=== PATIENT | female | born 1985 | race American Indian/Alaskan Native ===

== ENCOUNTER 2016-08-24 18:52 | Emergency (ER) | payer MEDICAID ==
[2016-08-24 19:42] VITALS: BP 140/83
--- NOTE | 2016-08-24 21:34 | Emergency Department Report ---
ED Rash HPI - HPI Chief Complaint: Skin Rash Stated Complaint: POSS HEAD BUGS Time Seen by Provider: 08/24/16 21:24 Location: Head, Neck Suspected Cause: Insect Rash Symptoms: Yes Itching, No Facial Swelling, No Tongue/Oral Swelling, No Breathing Difficulties, No Choking Sensation, No Wheezing/Dyspnea, No Peeling, No Blistering, No Fever, No Lightheaded, No Malaise, No Myalgias Severity: mild Other History: 30-year-old female past medical history none presents with complaint of itchy scalp and insects in her hair. Patient states that herself and her child they have been exhibiting symptoms for approximately one week. Recently stayed in a hotel. Patient states that she has noticed some small black insects falling out of her hair while showering. Denies any fever or chills denies any involvement of upper lower extremities primarily complaining of itchy scalp ED Review of Systems ROS: Stated complaint: POSS HEAD BUGS Other details as noted in HPI Constitutional: denies: chills, fever Eyes: denies: eye pain, eye discharge, vision change ENT: denies: ear pain, throat pain Respiratory: denies: cough, shortness of breath, wheezing Cardiovascular: denies: chest pain, palpitations Endocrine: no symptoms reported Gastrointestinal: denies: abdominal pain, nausea, diarrhea Genitourinary: denies: urgency, dysuria, discharge Musculoskeletal: denies: back pain, joint swelling, arthralgia Skin: as per HPI. denies: rash, lesions Neurological: denies: headache, weakness, paresthesias Psychiatric: denies: anxiety, depression Hematological/Lymphatic: denies: easy bleeding, easy bruising ED Past Medical Hx - Past Medical History Previous Medical History?: No - Surgical History Past Surgical History?: Yes Additional Surgical History: knee - Social History Smoking Status: Never Smoker Substance Use Type: None - Medications Home Medications: Home Medications Medication Instructions Recorded Confirmed Last Taken Type Permethrin 5% [Acticin 5% CREAM] 1 applicatio TP ONCE #1 tube 08/24/16 Unknown Rx Rash Exam - Exam General: Vital signs noted. No distress. Alert and acting appropriately. HEENT: No Periorbital Edema, No Conjuctival Injection, No Chemosis, No Perioral Edema, No Tongue Edema, No Uvular Edema, No Compromised Airway, No Drooling Lungs: Yes Good Air Exchange (Normal Breath Sounds), No Wheezes, No Ronchi, No Stridor, No Cough, No Labored Respirations, No Retractions, No Use of Accessory Muscles, No Other Abnormal Lung Sounds Heart: Yes Regular, No Murmur Skin: Yes Excoriations (small linear excoriations at base of neck and near hairline), No Urticarial Rash, No Maculopapular Rash, No Morbilliform rash, No Bulla(e), No Weeping, No Tenderness, No Erythema, No Encrustations, No Other Other: Positive: Abdomen Normal, Neurologic Normal, Musculoskeletal Normal ED Course Vital Signs 08/24/16 19:40 Temperature 98.2 F Pulse Rate 109 H Respiratory 18 Rate Blood Pressure 140/83 O2 Sat by Pulse 100 Oximetry ED Medical Decision Making - Medical Decision Making A/P: Possible scabies/flea infestation 1-treatment with permethrin cream 2-I advised patient to repeat treatment within 1 week if no resolution with first round of treatment 3-follow up with primary care doctor 4- Benadryl when necessary [id number] for itching Critical care attestation.: If time is entered above; I have spent that time in minutes in the direct care of this critically ill patient, excluding procedure time. ED Disposition Clinical Impression: Scabies Disposition: -01 TO HOME OR SELFCARE Is pt being admited?: No Does the pt Need Aspirin: No Condition: Stable Instructions: Scabies (ED) Prescriptions: Permethrin 5% [Acticin 5% CREAM] 1 applicatio TP ONCE #1 tube Referrals: [facility] [Provider Group] - 3-5 Days Time of Disposition: 21:33
== END 2016-08-24 21:35 | disposition home or self-care (01) ==
LOC: ED 18:52
DX: B86 Scabies (principal)
CPT/HCPCS: 99281

== ENCOUNTER 2019-04-22 16:49 | Emergency (ER) | payer MEDICAID ==
[2019-04-22 18:38] VITALS: BP 115/64
--- NOTE | 2019-04-22 18:44 | Emergency Department Report ---
Blank Doc - Documentation Documentation: 33-year-old female that presents with flank pain. This initial assessment/diagnostic orders/clinical plan/treatment(s) is/are subject to change based on patient's health status, clinical progression and re- assessment by fellow clinical providers in the ED. Further treatment and workup at subsequent clinical providers discretion. Patient/guardians urged not to elope from the ED as their condition may be serious if not clinically assessed and managed. Initial orders include: 1- Patient sent to [facility] for further evaluation and treatment 2- UA
[2019-04-22 20:21] LABS: Bilirubin,Urine NEG (Negative); Blood,Urine NEG (Negative); Color,Urine Yellow (Yellow); Mucus,Urine FEW /HPF; Protein,Urine <15 mg/dL mg/dL (Negative); Urobilinogen,Urine < 2.0 mg/dL (<2.0)
[2019-04-22 20:33] LABS: HCG Qualitative,Urine Negative (Negative)
[2019-04-22] MEDS ORDERED: ONDANSETRON 4 MG ODT TAB PO ONE (23:00)
[2019-04-22] MEDS ORDERED: KETOROLAC 30 MG/1 ML INJ IM ONE (23:00)
[2019-04-22] MEDS ORDERED: oxyCODONE /ACETAMINOPHEN 5-325MG TAB PO ONE (23:00)
[2019-04-22] MEDS ORDERED: dexAMETHasone 20 MG/5 ML VIAL IM ONE (23:00)
--- NOTE | 2019-04-22 23:45 | Emergency Department Report ---
ED Back Pain/Injury HPI - General Chief Complaint: Abdominal Pain Stated Complaint: RT SIDE LOWER BACK PAIN Time Seen by Provider: 04/22/19 18:44 Source: patient Limitations: No Limitations - History of Present Illness Initial Comments: Patient is a 33-year-old -[place] female with no past medical history presents to the ED with complaint of acute onset persistent nontraumatic low back pain for the last 2 days after heavy lifting at work. Patient states that the pain has been persistent and that in the last 12 hours the pain has worsened. Patient denies fall, traumatic injury, dysuria, urinary frequency and urgency, vaginal bleeding, dizziness, urinary or bowel incontinence, saddle paresthesia, fever and chills and hematuria. MD Complaint: back pain, other (heavy lifting at work) -: Sudden, days(s) (2) Similar Symptoms Previously: Yes Place: home Radiation: none Severity: moderate Severity scale (0 -10): 6 Quality: sharp, aching Consistency: constant Improves With: none Worsens With: none Context: while lifting, turning/twisting Associated Symptoms: denies other symptoms. denies: confusion, weakness, numbness, difficulty walking, cough, difficulty urinating, incontinence, constipation, headaches, abdominal pain, malaise, nausea/vomiting, rash, seizure, syncope - Related Data Previous Rx's Medication Instructions Recorded Last Taken Type Permethrin 5% [Acticin 5% CREAM] 1 applicatio TP ONCE #1 tube 08/24/16 Unknown Rx Ibuprofen [Motrin] 800 mg PO Q8HR PRN #24 tablet 04/22/19 Unknown Rx predniSONE [Deltasone] 40 mg PO QDAY #10 tab 04/22/19 Unknown Rx tiZANidine [Zanaflex 4mg TAB] 4 mg PO Q8H PRN #21 tablet 04/22/19 Unknown Rx traMADoL [Ultram] 50 mg PO Q6HR PRN #12 tablet 04/22/19 Unknown Rx Allergies Allergy/AdvReac Type Severity Reaction Status Date / Time No Known Allergies Allergy Unverified 08/24/16 19:40 ED Review of Systems ROS: Stated complaint: RT SIDE LOWER BACK PAIN Other details as noted in HPI Constitutional: denies: chills, fever Eyes: denies: eye pain, eye discharge, vision change ENT: denies: ear pain, throat pain Respiratory: denies: cough, shortness of breath, wheezing Cardiovascular: denies: chest pain, palpitations Endocrine: no symptoms reported Gastrointestinal: denies: abdominal pain, nausea, diarrhea Genitourinary: denies: urgency, dysuria, discharge Musculoskeletal: back pain (lower), arthralgia. denies: joint swelling Skin: denies: rash, lesions Neurological: denies: headache, weakness, paresthesias Psychiatric: denies: anxiety, depression Hematological/Lymphatic: denies: easy bleeding, easy bruising ED Past Medical Hx - Past Medical History Previous Medical History?: No - Surgical History Past Surgical History?: Yes Additional Surgical History: knee - Social History Smoking Status: Current Every Day Smoker Substance Use Type: Alcohol - Medications Home Medications: Home Medications Medication Instructions Recorded Confirmed Last Taken Type Permethrin 5% [Acticin 5% CREAM] 1 applicatio TP ONCE #1 tube 08/24/16 Unknown Rx Ibuprofen [Motrin] 800 mg PO Q8HR PRN #24 tablet 04/22/19 Unknown Rx predniSONE [Deltasone] 40 mg PO QDAY #10 tab 04/22/19 Unknown Rx tiZANidine [Zanaflex 4mg TAB] 4 mg PO Q8H PRN #21 tablet 04/22/19 Unknown Rx traMADoL [Ultram] 50 mg PO Q6HR PRN #12 tablet 04/22/19 Unknown Rx ED Physical Exam - General Limitations: No Limitations General appearance: alert, in no apparent distress - Head Head exam: Present: atraumatic, normocephalic, normal inspection - Eye Eye exam: Present: normal appearance, PERRL, EOMI Pupils: Present: normal accommodation - ENT ENT exam: Present: normal exam, normal orophraynx, mucous membranes moist, TM's normal bilaterally, normal external ear exam - Neck Neck exam: Present: normal inspection, full ROM - Respiratory Respiratory exam: Present: normal lung sounds bilaterally. Absent: respiratory distress, wheezes, rales, rhonchi, chest wall tenderness, accessory muscle use, decreased breath sounds - Cardiovascular Cardiovascular Exam: Present: regular rate, normal rhythm, normal heart sounds. Absent: systolic murmur, diastolic murmur, rubs, gallop - GI/Abdominal GI/Abdominal exam: Present: soft, normal bowel sounds. Absent: tenderness, guarding - Extremities Exam Extremities exam: Present: normal inspection, full ROM. Absent: normal capillary refill, pedal edema, joint swelling - Back Exam Back exam: Present: normal inspection, full ROM, tenderness (Palpable lumbosacral paraspinal musculoskeletal tenderness), muscle spasm, paraspinal tenderness - Neurological Exam Neurological exam: Present: alert, oriented X3, CN II-XII intact, normal gait, reflexes normal - Psychiatric Psychiatric exam: Present: normal affect, normal mood - Skin Skin exam: Present: warm, dry, intact, normal color. Absent: rash ED Course Vital Signs 04/22/19 18:31 Temperature 98.5 F Pulse Rate 67 Respiratory 18 Rate Blood Pressure 115/64 O2 Sat by Pulse 98 Oximetry ED Medical Decision Making - Medical Decision Making This is a 33-year-old female who presented to the ED with acute onset nontraumatic low back pain after heavy lifting at work 2 days ago. 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 In the ED, patient is alert and oriented x3 and is not in any distress but appears to be in pain. Patient was treated for pain in the ED and on reevaluation, patient's pain is well controlled with medications. Urinalysis is unremarkable. Patient was discharged home on medication advised to follow-up with her primary care physician in 7 to 10 days for reevaluation or return to the ED immediately if symptoms get worse. - Differential Diagnosis muscle spasm of back; Muscle strain of lower back; UTI Critical care attestation.: If time is entered above; I have spent that time in minutes in the direct care of this critically ill patient, excluding procedure time. ED Disposition Clinical Impression: Spasm of muscle of lower back, Strain of muscle, fascia and tendon of lower back, initial encounter Acute low back pain without sciatica Qualifiers: Back pain laterality: unspecified Qualified Code(s): M54.5 - Low back pain Disposition: - TO HOME OR SELFCARE Is pt being admited?: No Does the pt Need Aspirin: No Condition: Stable Instructions: Abdominal Pain (ED) Additional Instructions: Your symptoms are likely musculoskeletal strain or muscle spasm of your low back. Take medication with food, drink plenty of fluids and follow-up with your primary care physician in 7 to 10 days for reevaluation. Return to the ED immediately if symptoms get worse. Prescriptions: predniSONE [Deltasone] 40 mg PO QDAY #10 tab Ibuprofen [Motrin] 800 mg PO Q8HR PRN #24 tablet PRN Reason: Pain , Severe (7-10) traMADoL [Ultram] 50 mg PO Q6HR PRN #12 tablet PRN Reason: Pain tiZANidine [Zanaflex 4mg TAB] 4 mg PO Q8H PRN #21 tablet PRN Reason: Muscle Spasm Referrals: [facility] [Outside] - 7-10 days Forms: Work/School Release Form(ED) Time of Disposition: 23:46 Print Language: LUXEMBOURGER
== END 2019-04-23 00:10 | disposition home or self-care (01) ==
LOC: ED 16:49
DX: S39.012A Strain of muscle, fascia and tendon of lower back, initial encounter (principal); M62.830 Muscle spasm of back; F17.200 Nicotine dependence, unspecified, uncomplicated; Z79.1 Long term (current) use of non-steroidal anti-inflammatories (NSAID); Z79.899 Other long term (current) drug therapy; X50.9XXA Other and unspecified overexertion or strenuous movements or postures, initial encounter; Y93.89 Activity, other specified; Y92.89 Other specified places as the place of occurrence of the external cause; Y99.8 Other external cause status
CPT/HCPCS: 81001; 81025; 87086; 96372; 99283; J1100; J1885; Q0162

== ENCOUNTER 2020-09-11 11:18 | Emergency (ER) | payer MEDICAID ==
--- NOTE | 2020-09-11 11:41 | Emergency Department Report ---
ED General Adult HPI - General Chief complaint: Extremity Injury, Upper Stated complaint: FELL ON ELBOW Time Seen by Provider: 09/11/20 11:38 Source: patient Mode of arrival: Ambulatory Limitations: No Limitations - History of Present Illness Initial comments: 34-year-old -[place] female patient presents with complaints of right elbow pain and swelling after a fall injury last night. She rates her current pain is 8/10 in severity. Patient states she is having difficulty moving the right elbow due to the pain. No numbness/tingling or weakness in her hand per patient. She has not tried any OTC medication for her symptoms. -: Sudden - Related Data Previous Rx's Medication Instructions Recorded Last Taken Type Permethrin 5% [Acticin 5% CREAM] 1 applicatio TP ONCE #1 tube 08/24/16 Unknown Rx Ibuprofen [Motrin] 800 mg PO Q8HR PRN #24 tablet 04/22/19 Unknown Rx predniSONE [Deltasone] 40 mg PO QDAY #10 tab 04/22/19 Unknown Rx tiZANidine [Zanaflex 4mg TAB] 4 mg PO Q8H PRN #21 tablet 04/22/19 Unknown Rx traMADoL [Ultram] 50 mg PO Q6HR PRN #12 tablet 04/22/19 Unknown Rx Acetaminophen/Codeine [Tylenol 1 tab PO Q8H PRN #6 tab 09/11/20 Unknown Rx /Codeine # 3 tab] Naproxen 500 mg PO BID PRN #20 tablet 09/11/20 Unknown Rx Allergies Allergy/AdvReac Type Severity Reaction Status Date / Time No Known Allergies Allergy Verified 09/11/20 11:37 ED Review of Systems ROS: Stated complaint: FELL ON ELBOW Other details as noted in HPI Constitutional: denies: weakness Musculoskeletal: joint swelling, arthralgia Skin: denies: change in color Neurological: denies: numbness ED Past Medical Hx - Past Medical History Previous Medical History?: No - Surgical History Additional Surgical History: knee - Social History Smoking Status: Current Every Day Smoker Substance Use Type: Alcohol - Medications Home Medications: Home Medications Medication Instructions Recorded Confirmed Last Taken Type Permethrin 5% [Acticin 5% CREAM] 1 applicatio TP ONCE #1 tube 08/24/16 Unknown Rx Ibuprofen [Motrin] 800 mg PO Q8HR PRN #24 tablet 04/22/19 Unknown Rx predniSONE [Deltasone] 40 mg PO QDAY #10 tab 04/22/19 Unknown Rx tiZANidine [Zanaflex 4mg TAB] 4 mg PO Q8H PRN #21 tablet 04/22/19 Unknown Rx traMADoL [Ultram] 50 mg PO Q6HR PRN #12 tablet 04/22/19 Unknown Rx Acetaminophen/Codeine [Tylenol 1 tab PO Q8H PRN #6 tab 09/11/20 Unknown Rx /Codeine # 3 tab] Naproxen 500 mg PO BID PRN #20 tablet 09/11/20 Unknown Rx ED Physical Exam - General Limitations: No Limitations General appearance: alert, in no apparent distress - Head Head exam: Present: atraumatic, normocephalic - Eye Eye exam: Present: normal appearance - Respiratory Respiratory exam: Absent: respiratory distress - Cardiovascular Cardiovascular Exam: Present: regular rate - Expanded Upper Extremity Exam Right Elbow exam: Present: tenderness (Lateral), swelling (Moderate lateral). Absent: full ROM (Limited secondary to pain), abrasion, laceration, ecchymosis, defo rmity, crepidus, dislocation, erythema Forearm Wrist exam: Present: normal inspection Hand Wrist exam: Present: normal inspection Vascular: Present: normal capillary refill. Absent: pulse deficit radial art, pulse deficit ulnar art - Neurological Exam Neurological exam: Present: alert, oriented X3, normal gait - Psychiatric Psychiatric exam: Present: normal affect, normal mood - Skin Skin exam: Present: warm, dry, intact, normal color. Absent: rash ED Course Vital Signs 09/11/20 11:43 Temperature 98.3 F Pulse Rate 72 Respiratory 20 Rate Blood Pressure 116/52 [Right] O2 Sat by Pulse 99 Oximetry ED Medical Decision Making - Radiology Data Radiology results: report reviewed RIGHT ELBOW 3 VIEWS 1201 INDICATION: lateral pain and swelling after fall injury COMPARISON: None available. FINDINGS: Moderate joint effusion is noted. No definite fractures or locations are seen. However, in the setting of trauma the joint effusion is of concern an occult fracture is possible. Follow-up is suggested. - Medical Decision Making 34-year-old -[place] female patient presents with complaints of right elbow pain and swelling after a fall injury last night. She rates her current pain is 8/10 in severity. Patient states she is having difficulty moving the right elbow due to the pain. No numbness/tingling or weakness in her hand per patient. She has not tried any OTC medication for her symptoms. X-ray of the elbow shows moderate effusion without obvious fracture, however occult fracture cannot be ruled out. Patient placed in Rivera wrap and sling. She was instructed to follow-up with orthopedics on Sunday for further evaluation. Discussed in great detail signs and symptoms that should prompt immediate return to the emergency department in detail with patient who verbalizes understanding. She is well-appearing and stable for discharge home. Critical care attestation.: If time is entered above; I have spent that time in minutes in the direct care of this critically ill patient, excluding procedure time. ED Disposition Clinical Impression: Injury of elbow, right Disposition: DC-01 TO HOME OR SELFCARE Is pt being admited?: No Condition: Stable Instructions: Elbow Sprain, Olecranon Fracture Prescriptions: Naproxen 500 mg PO BID PRN #20 tablet PRN Reason: pain Acetaminophen/Codeine [Tylenol /Codeine # 3 tab] 1 tab PO Q8H PRN #6 tab PRN Reason: Pain , Severe (7-10) Referrals: JOYCE VARELA MD [Staff Physician] - 2-3 Days Forms: Work/School Release Form(ED)
--- NOTE | 2020-09-11 12:38 | XRay Report ---
RIGHT ELBOW 3 VIEWS 1201 INDICATION: lateral pain and swelling after fall injury COMPARISON: None available. FINDINGS: Moderate joint effusion is noted. No definite fractures or locations are seen. However, in the setting of trauma the joint effusion is of concern an occult fracture is possible. Follow-up is s uggested. Signer Name: Bossman East MD Signed: 09/11/2020 12:33 PM Workstation Name: [id number]
[2020-09-11] MEDS ORDERED: IBUPROFEN 800 MG TAB PO STA (13:10)
[2020-09-11] MEDS ORDERED: ACETAMINOPHEN 500 MG TAB PO STA (13:10)
[2020-09-11 14:03] VITALS: BP 117/69
== END 2020-09-11 14:02 | disposition home or self-care (01) ==
LOC: ED 11:18
DX: S59.901A Unspecified injury of right elbow, initial encounter (principal); F17.200 Nicotine dependence, unspecified, uncomplicated; Z72.89 Other problems related to lifestyle; Z79.899 Other long term (current) drug therapy; W18.39XA Other fall on same level, initial encounter; Y93.89 Activity, other specified; Y92.89 Other specified places as the place of occurrence of the external cause; Y99.8 Other external cause status
CPT/HCPCS: 99284